=== PATIENT | male | born 1935 ===

== ENCOUNTER 2019-07-03 20:01 | Emergency (ER) | payer MEDICARE ==
[~2019-07-03 20:01] MED LIST: AMLO5TAB4 PO; ASPI-496 PO; CETI10CA PO; CLON0.2T; CYCL5TAB PO; DOXY100T PO; GEMF600T8 PO; KETO10DR5 EACHEYE; LEVO750T26 PO; LISI-170 PO; QUIN40TA15 PO; TAMS0.4C2 PO
== END 2019-07-03 20:13 ==
LOC: ED 20:12
DX: Z01.30 Encounter for examination of blood pressure without abnormal findings (principal); Z53.21 Procedure and treatment not carried out due to patient leaving prior to being seen by health care provider